=== PATIENT | male | born 1990 | race African-American/Black ===

== ENCOUNTER 2025-01-26 00:25 | Inpatient (IN) | payer MEDICAID ==
[~2025-01-26] VITALS: Ht 177.8 cm; Wt 92.0 kg
[~2025-01-26 00:25] MED LIST: GABA-1250 PO; METH-1181 PO; PERCOT PO
--- NOTE | 2025-01-26 01:48 | ED.PDOC ---
Back pain HPI HPI Comments 34-year-old male presents to the ED via ambulance chief complaint lower extremity weakness and numbness. States several days ago he lost his footing slipped and landed on his back. Patient states since then he has been having increasing pain weakness and numbness which has increased more over the past 6 hours. Pain 10/10 on pain scale sharp shooting pain down bilateral buttocks and legs. 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 He denies saddle anesthesia, chest pain, shortness of breath, loss of bowel or bladder control. Chief Complaint: Back Pain Time Seen by MD: 00:32 Reviewed Notes: Nurses Notes, Distribution District Supervisor Notes, Medications, Allergies Allergies: Coded Allergies: Penicillins (Verified Allergy, Unknown, 12/24/24) Home Meds Active Scripts Methocarbamol (Methocarbamol) 500 Mg Tab, 1000 MG PO TID for 30 Days, #120 TAB Prov:CHINO DASH MD 12/26/24 Reported Medications Oxycodone HCl (Oxycodone Hydrochloride) 10 Mg Tab, 10 MG PO TIDP PRN, TAB 01/26/25 Duloxetine HCl (Duloxetine HCl) 60 Mg Cap, 1 CAP PO DAILY 01/26/25 Gabapentin (Gabapentin) 300 Mg Cap, 600 MG PO TID for 30 Days, MG 12/24/24 Discontinued Scripts Oxycodone W/ Acetaminophen (Percocet 5/325MG) 1 Tab Tb, 1 TAB PO TID PRN, #30 TAB Prov:CHINO DASH MD 12/26/24 Mode of Arrival: EMS Past Medical History Surgical History: Denies all surgeries Family History Family History: Reviewed,noncontributory to illness, Unknown Social History Smoker: Non-Smoker Alcohol: Denies ETOH Use Drugs: Denies Drug Use Constitutional: denies: chills, diaphoresis, fatigue, fever, malaise, sweats, weakness, others EENTM: denies: blurred vision, double vision, ear bleeding, ear discharge, ear drainage, ear pain, ear ringing, eye pain, eye redness, hearing loss, mouth pain, mouth swelling, nasal discharge, nose bleeding, nose congestion, nose pain, photophobia, tearing, throat pain, throat swelling, voice changes, others Respiratory: denies: cough, hemoptysis, orthopnea, SOB at rest, shortness of breath, SOB with excertion, stridor, wheezing, others Cardiovascular: denies: chest pain, dizzy spells, diaphoresis, Dyspnea on exertion, edema, irregular heart beat, left arm pain, lightheadedness, palpitations, PND, syncope, others Gastrointestinal: denies: abdomen distended, abdominal pain, blood streaked bowels, constipated, diarrhea, dysphagia, difficulty swallowing, hematemesis, melena, nausea, poor appetite, poor fluid intake, rectal bleeding, rectal pain, vomiting, others Genitourinary: denies: burning, dysuria, flank pain, frequency, hematuria, incontinence, penile discharge, penile sore, pain, testicle pain, testicle swelling, urgency, others Neurological: reports: left sided numbness, left sided weakness, right sided numbness, right sided weakness; denies: dizziness, fainting, headache, numbness, paresthesia, pre-existing deficit, seizure, speech problems, tingling, tremors, weakness, others Musculoskeletal: reports: back pain; denies: gout, joint pain, joint swelling, muscle pain, muscle stiffness, neck pain, others Integumetry: denies: bruises, change in color, change in hair/nails, dryness, laceration, lesions, lumps, rash, wounds, others Allergic/Immunocompromised: denies: Difficulty Healing, Frequent Infections, Hives, Itching, others Hematologic/Lymphatic: denies: anemia, blood clots, easy bleeding, easy bruising, swollen glands, others Endocrine: denies: excessive hunger, excessive sweating, excessive thirst, excessive urination, flushing, intolerance to cold, intolerance to heat, unexplained weight gain, unexplained weight loss, others Psychiatric: denies: anxiety, bipolar disorder, depression, hopeless, panic disorder, schizophrenia, sleepless, suicidal, others Physical Exam General Appearance: No Apparent Distress, Normal HEENT: Pharynx Normal Neck: Full Range of Motion, Non-Tender, Normal, Normal Inspection Respiratory: Lungs Clear, No Respiratory Distress, Normal Breath Sounds Cardiovascular: No Edema, No JVD, No Murmur, No Gallop, Normal Peripheral Pulses, Regular Rate/Rhythm Breast Exam: Deferred Gastrointestinal: No Organomegaly, Non Tender, No Pulsatile Mass, Normal Bowel Sounds, Soft Genitalia: Deferred Pelvic: Deferred Rectal: Deferred Extremities: No calf tenderness, Normal capillary refill, Normal inspection, Normal range of motion, Non-tender, No pedal edema Musculoskeletal : Location: Bilateral Extremity Location: Back (Tenderness on palpation L1 through L4 spine without crepitus or step-offs. Bilateral paraspinal muscle spasms. Decreased strength lower extremities 3/5. Positive pedal pulses. ) Apperance: Normal Neurologic: Alert, Normal Affect, Normal Mood, Other (decrease sensory level on pin prick at L2-L3) Cerebellar Function: Normal Reflexes: Normal Skin: Dry, Normal Color, Warm Lymphatic: No Adenopathy Was a procedure done? Was a procedure done?: No Back Pain Differential Dx Differential Diagnosis: Fracture, Musculoskeletal Pain X-Ray, Labs, Meds, VS Vital Signs Date Time Temp Pulse Resp B/P (MAP) Pulse Ox O2 Delivery O2 Flow Rate FiO2 01/26/25 00:25 97.8 80 16 124/82 (96) 99 97.8 Lab Test 01/26/25 02:03 Range/Units White Blood Count 6.1 4.4-10.8 10^3/uL Red Blood Count 4.95 4.5-5.90 10^6/uL Hemoglobin 13.3 L 13.5-17.5 g/dL Hematocrit 40.7 L 41.0-53.0 % Mean Corpuscular Volume 82.3 80.0-100.0 fL Mean Corpuscular Hemoglobin 26.8 L 28.0-32.0 pg Mean Corpuscular Hemoglobin Concent 32.6 32.0-36.0 g/dL Red Cell Distribution Width 14.8 H 11.8-14.3 % Platelet Count 310 140-450 10^3/uL Mean Platelet Volume 7.5 6.9-10.8 fL Neutrophils (%) (Auto) 58.5 37.0-80.0 % Lymphocytes (%) (Auto) 35.0 10.0-50.0 % Monocytes (%) (Auto) 5.5 0.0-12.0 % Eosinophils (%) (Auto) 0.7 0.0-7.0 % Basophils (%) (Auto) 0.3 0.0-2.0 % Neutrophils # (Auto) 3.6 1.6-8.6 10 ^3/uL Lymphocytes # (Auto) 2.1 0.4-5.4 10 ^3/uL Monocytes # (Auto) 0.3 0-1.3 10 ^3/uL Eosinophils # (Auto) 0 0-0.8 10 ^3/uL Basophils # (Auto) 0 0-0.2 10 ^3/uL Nucleated Red Blood Cells 0.1 % Sodium Level 140 136-145 mmol/L Potassium Level 3.4 L 3.5-5.1 mmol/L Chloride Level 105 98-107 mmol/L Carbon Dioxide Level 24 20-31 mmol/L Anion Gap 11 5-15 Blood Urea Nitrogen 7 L 9-23 mg/dL Creatinine 0.87 0.700-1.30 mg/dL Glomerular Filtration Rate Calc 117 >90 mL/min BUN/Creatinine Ratio 8.0 L 10.0-20.0 Serum Glucose 84 74-106 mg/dL Calcium Level 9.8 8.7-10.4 mg/dL Total Bilirubin 0.5 0.2-1.0 mg/dL Aspartate Amino Transferase (AST) 17 13-40 U/L Alanine Aminotransferase (ALT) 13 7-40 U/L Alkaline Phosphatase 46 46-116 U/L Total Protein 7.8 5.7-8.2 g/dL Albumin 5.1 H 3.2-4.8 g/dL X-Ray, Labs, Meds, VS Comment CT of lumbar spine shows no acute fractures subluxations or osseous lesions. 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, without bowel bladder control problem Chronic low back pain Reported Guillain-Meraux syndrome Time of 1ST Reevaluation: 03:00 Reevaluation 1ST: Unchanged Time of 2ND Reevaluation: 05:12 Reevaluation 2ND: Unchanged Patient Education/Counseling: Diagnosis, Treatment, Prognosis, Need For Follow Up Family Education/Counseling: No Family Present Departure 1 Departure Time of Disposition: 04:33 Impression: Primary Impression: Ascending paralysis Additional Impressions: Leg weakness, bilateral Lumbar radiculopathy Disposition: ADMITTED INPATIENT Condition: Stable Discharged With: Self Critical Care Note Critical Care Time?: No Stability Stability form required: DIANA Dumont Jan 26, 2025 01:48
--- NOTE | 2025-01-26 02:46 | DVH ---
EXAM: CT LS SPINE WO CONTRAST HISTORY: S/P FALL WEAKNESS AND NUMBNESS COMPARISON: CT LS SPINE WO CONTRAST on DOS: 12/24/24 CTDIvol 29.27 mGy, DLP 1099.79 mGy*cm. TECHNIQUE: Multiple axial CT images of the spine were obtained using bone algorithm. Axial and coron al reformatting was done. Bone and soft tissue windows were reviewed. FINDINGS: No CT evidence of definite acute fracture, spinal dislocation, or significant appearing acute subluxa tion is seen. The visualized paraspinal soft tissues are grossly unremarkable. IMPRESSION: 1. No definite CT evidence of acute fracture or dislocation of the bony lumbar spine.
[2025-01-26 03:09] LABS: Basophils # (auto) 0 10 ^3/uL (0-0.2); Eosinophils # (auto) 0 10 ^3/uL (0-0.8); Eosinophils % (auto) 0.7 % (0.0-7.0); Hematocrit 40.7 % (41.0-53.0); Hemoglobin 13.3 g/dL (13.5-17.5); Lymphocytes # (auto) 2.1 10 ^3/uL (0.4-5.4); Mean Corpuscular Hgb Conc. 32.6 g/dL (32.0-36.0); Monocytes # (auto) 0.3 10 ^3/uL (0-1.3)
[2025-01-26 03:11] LABS: Basophils % (auto) 0.3 % (0.0-2.0); Mean Corpuscular Hemoglobin 26.8 pg (28.0-32.0); Mean Corpuscular Volume 82.3 fL (80.0-100.0); Monocytes % (auto) 5.5 % (0.0-12.0); Neutrophils # (auto) 3.6 10 ^3/uL (1.6-8.6); Neutrophils % (auto) 58.5 % (37.0-80.0); Nucleated Red Blood Cells % 0.1 %; Platelet Count (auto) 310 10^3/uL (140-450); Red Blood Cells 4.95 10^6/uL (4.5-5.90); Red Cell Distribution Width 14.8 % (11.8-14.3); White Blood Cell 6.1 10^3/uL (4.4-10.8)
[2025-01-26 03:19] LABS: Alanine Aminotransferase 13 U/L (7-40); Alkaline Phosphatase 46 U/L (46-116); Anion Gap 11 (5-15); Aspartate Aminotransferase 17 U/L (13-40); Bilirubin, Total 0.5 mg/dL (0.2-1.0); Calcium 9.8 mg/dL (8.7-10.4); Carbon Dioxide 24 mmol/L (20-31); Chloride 105 mmol/L (98-107); Glucose 84 mg/dL (74-106); Sodium 140 mmol/L (136-145); Total Protein 7.8 g/dL (5.7-8.2)
[2025-01-26 03:20] LABS: Albumin 5.1 g/dL (3.2-4.8); Blood Urea Nitrogen 7 mg/dL (9-23); Potassium 3.4 mmol/L (3.5-5.1)
[2025-01-26] MEDS: MORPHINE SULFATE 4 MG/ML SYR/VIAL ONE (06:45)
[2025-01-26] MEDS: SODIUM CHLORIDE 0.9% 1,000 ML IV ONE (06:46)
[2025-01-26] MEDS: MORPHINE SULFATE INJ 2 MG/ml SYRG IV ONE (06:46)
[2025-01-26 07:58] LABS: Urine Bacteria None Seen /hpf (None Seen)
[2025-01-26 08:17] LABS: Urine Blood Negative /uL (Negative); Urine Clarity Clear (Clear); Urine Color Yellow (Yellow); Urine Mucus MODERATE (None Seen); Urine Protein, UAD 1+ (Negative); Urine Specific Gravity 1.035 (1.001-1.035); Urine Squamous Epithelial Cell None Seen /hpf (<5); Urine Urobilinogen 2 mg/dL (Negative); Urine WBC 4 /HPF (0-3)
[2025-01-26 08:26] LABS: Cannabinoid Screen, Urine Pos (NEGATIVE)
[2025-01-26 08:28] LABS: Amphetamine Screen, Urine Neg (NEGATIVE); Barbiturate Scree,Urine Neg (NEGATIVE); Benzodiazephine Screen, Urine Pos (NEGATIVE); Cocaine Screen, Urine Neg (NEGATIVE); Opiate Scree,Urine Pos (NEGATIVE); Phencyclidine Screen, Urine Neg (NEGATIVE)
[2025-01-26] MEDS ORDERED: OXYC-998 PO (08:57)
[2025-01-26] MEDS ORDERED: DULO1CAP6 PO (08:57)
[2025-01-26] MEDS ORDERED: ONDANSETRON HCL 4 MG/2 ML VIAL IV PRN (09:00)
[2025-01-26] MEDS ORDERED: OXYCODONE HCL 10 MG PO PRN (09:00)
[2025-01-26] MEDS ORDERED: DOCUSATE SOD 100 MG CAP PO PRN (09:00)
[2025-01-26] MEDS ORDERED: PERCOCET PO PRN (09:45)
--- NOTE | 2025-01-26 11:22 | DVHHP2 ---
History of Present Illness Reason for Visit: Back pain History of Present Illness Ibis Bangura is a 34-year-old male with past medical history of chronic pain due to a sports injury in his teens, and Guillain-Patricksburg syndrome in August 2024. He states he did receive IVIG treatment in August when he was initially diagnosed. Patient came to the hospital today due to increased back pain after a mechanical fall a couple days ago. He states he began experiencing increased pain, numbness, tingling, and weakness in both legs prompting him to come to the hospital. 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 syndrome) Musculoskeletal: Chronic low back pain Past Surgical History: Hernia Repair Smoke: No ALCOHOL: none Drugs: None Lives: with Family Domestic Violence: Neg Review of Systems Constitutional: No: Fever, Chills, Sweats, Weakness, Malaise, Other Eyes: No: Pain, Vision change, Conjunctivae inflammation, Eyelid inflammation, Other, Redness ENT: No: Ear pain, Ear discharge, Nose pain, Nose discharge, Nose congestion, Mouth pain, Mouth swelling, Throat pain, Throat swelling, Other Respiratory: No: Cough, Dry, Shortness of breath, SOB with excertion, Wheezing, Hemoptysis, Pleuritic Pain, Sputum, Wheezing, Other Cardiovascular: No: Chest Pain, Palpitations, Orthopnea, Paroxysmal Noc. Dyspnea, Edema, Lt Headedness, Other Gastrointestinal: No: Nausea, Vomiting, Abdominal Pain, Diarrhea, Constipation, Melena, Hematochezia, Other Genitourinary: No Dysuria, No Frequency, No Incontinence, No Hematuria, No Retention, No Other Musculoskeletal: back pain; No: other, neck pain, shoulder pain, arm pain, hand pain, leg pain, foot pain Skin: No: Rash, Lesions, Jaundice, Bruising, Other Neurological: Weakness (bilateral lower extremities), Numbness (and tingling to bilateral lower extremities); No: Incoordination, Change in speech, Confusion, Seizures, Other Allergies: Coded Allergies: Penicillins (Verified Allergy, Unknown, 12/24/24) Medications Current Medications Medications Dose Ordered Sig/Roly Route Start Time Stop Time Status Last Admin Dose Admin Sodium Chloride 10 ml Q8HR IV 01/26/25 14:00 UNV Ondansetron HCl 4 mg Q4HP PRN IV 01/26/25 09:00 UNV Docusate Sodium 100 mg BIDPRN PRN PO 01/26/25 09:00 UNV Gabapentin 600 mg TID PO 01/26/25 14:00 UNV Methocarbamol 1,000 mg TID PO 01/26/25 14:00 UNV Exam Vital Signs Vital Signs Date Time Temp Pulse Resp B/P (MAP) Pulse Ox O2 Delivery O2 Flow Rate FiO2 01/26/25 07:23 98.0 71 14 122/71 (88) 99 98.0 General Appearance: Alert, Oriented X3, Cooperative, mild distress HEENT: Atraumatic, PERRLA Respiratory: Clear to auscultation, Normal air movement Cardiovascular: Regular rate, Normal S1, Normal S2, No murmurs Abdominal: Normal bowel sounds, Soft, No tenderness, No hepatospenomegaly Extremities: No clubbing, No cyanosis, No edema, Normal pulses, No tenderness/swelling Skin: No rashes, No breakdown Neuro: Normal speech, Other (states he is having difficulty ambulating due to pain, numbness, and tingling) Psych/Mental Status: Mental status NL, Mood NL Labs/Xrays Labs Test 01/26/25 07:18 01/26/25 02:03 Range/Units Urine Color Yellow Yellow Urine Clarity Clear Clear Urine pH 6.0 5.0-9.0 Urine Specific [place] 1.035 1.001-1.035 Urine Protein 1+ H Negative Urine Ketones 3+ H Negative Urine Blood Negative Negative /uL Urine Nitrite Negative Negative Urine Bilirubin Negative Negative Urine Urobilinogen 2 H Negative mg/dL Urine Leukocyte Esterase Negative Negative /uL Urine RBC 1 0 - 3 /hpf Urine Microscopic WBC 4 H 0-3 /HPF Urine Squamous Epithelial Cells None seen <5 /hpf Urine Bacteria None seen None Seen /hpf Urine Mucus Moderate None Seen Urine Glucose Normal Normal mg/dL Urine Opiates Screen Pos NEGATIVE Urine Fentanyl Screen Neg NEGATIVE Urine Barbiturates Screen Neg NEGATIVE Urine Phencyclidine Screen Neg NEGATIVE Urine Amphetamines Screen Neg NEGATIVE Urine Benzodiazepines Screen Pos NEGATIVE Urine Cocaine Screen Neg NEGATIVE Urine Cannabinoids Screen Pos NEGATIVE White Blood Count 6.1 4.4-10.8 10^3/uL Red Blood Count 4.95 4.5-5.90 10^6/uL Hemoglobin 13.3 L 13.5-17.5 g/dL Hematocrit 40.7 L 41.0-53.0 % Mean Corpuscular Volume 82.3 80.0-100.0 fL Mean Corpuscular Hemoglobin 26.8 L 28.0-32.0 pg Mean Corpuscular Hemoglobin Concent 32.6 32.0-36.0 g/dL Red Cell Distribution Width 14.8 H 11.8-14.3 % Platelet Count 310 140-450 10^3/uL Mean Platelet Volume 7.5 6.9-10.8 fL Neutrophils (%) (Auto) 58.5 37.0-80.0 % Lymphocytes (%) (Auto) 35.0 10.0-50.0 % Monocytes (%) (Auto) 5.5 0.0-12.0 % Eosinophils (%) (Auto) 0.7 0.0-7.0 % Basophils (%) (Auto) 0.3 0.0-2.0 % Neutrophils # (Auto) 3.6 1.6-8.6 10 ^3/uL Lymphocytes # (Auto) 2.1 0.4-5.4 10 ^3/uL Monocytes # (Auto) 0.3 0-1.3 10 ^3/uL Eosinophils # (Auto) 0 0-0.8 10 ^3/uL Basophils # (Auto) 0 0-0.2 10 ^3/uL Nucleated Red Blood Cells 0.1 % Sodium Level 140 136-145 mmol/L Potassium Level 3.4 L 3.5-5.1 mmol/L Chloride Level 105 98-107 mmol/L Carbon Dioxide Level 24 20-31 mmol/L Anion Gap 11 5-15 Blood Urea Nitrogen 7 L 9-23 mg/dL Creatinine 0.87 0.700-1.30 mg/dL Glomerular Filtration Rate Calc 117 >90 mL/min BUN/Creatinine Ratio 8.0 L 10.0-20.0 Serum Glucose 84 74-106 mg/dL Calcium Level 9.8 8.7-10.4 mg/dL Total Bilirubin 0.5 0.2-1.0 mg/dL Aspartate Amino Transferase (AST) 17 13-40 U/L Alanine Aminotransferase (ALT) 13 7-40 U/L Alkaline Phosphatase 46 46-116 U/L Total Protein 7.8 5.7-8.2 g/dL Albumin 5.1 H 3.2-4.8 g/dL EXAM: CT LS SPINE WO CONTRAST FINDINGS: No CT evidence of definite acute fracture, spinal dislocation, or significant appearing acute subluxation is seen. The visualized paraspinal soft tissues are grossly unremarkable. IMPRESSION: 1. No definite CT evidence of acute fracture or dislocation of the bony lumbar spine. Assessment/Plan Assessment/Plan Assessment: Lumbar radiculopathy, Bilateral leg weakness, Paraesthesia, Guillain-Patricksburg syndrome, Chronic pain, Plan: Admit to Med-Surg, Physical therapy, Pain management, Consider neurology consult if symptoms worsen, Home medications reconciled, Plan discussed with: Patient My Orders Orders - ANITA LYN Procedure Category Date Status Time Admit ADMIT 01/26/25 Transmitted 08:54 Code Status CODE 01/26/25 Transmitted 08:54 Sodium Chloride Lock PHA 01/26/25 Logged (Saline Lock Ns) 14:00 Ondansetron Hcl PHA 01/26/25 Logged (Zofran) 09:00 Docusate Sodium PHA 01/26/25 Logged Capsule (Colace 09:00 Fall Risk Precautions KELLY 01/26/[address] 08:54 Complete Blood Count LAB 01/27/25 Verified 04:00 Comprehensive LAB 01/27/25 Verified Metabolic Panel 04:00 Pt Request For Service PT 01/26/25 Logged 08:54 Condition: Serious KELLY 01/26/25 In Process 08:54 Gabapentin Capsule PHA 01/26/25 Logged (Neurontin Capsule) 14:00 Methocarbamol PHA 01/26/25 Logged (Robaxin) 14:00 (Nf) Oxycodone Hcl PHA 01/26/25 Logged (Oxycodone Hydrochlor 09:00 Date of Service: Jan 26, 2025 Billing Provider: ANITA LYN Common Visit Codes: [id number] INP/OBS CARE (MOD) ANITA LYN Jan 26, 2025 11:22
[2025-01-26] MEDS: KETOROLAC TROMETH 30 MG/ML 1ML VIAL IV PRN (11:23)
[2025-01-26 12:58] VITALS: BP 114/75; PULSE 77; RESP 16; TEMP 98; O2SAT 99
[2025-01-26] MEDS ORDERED: SODIUM CHLOR 0.9% PF (SALINE LOCK) 10ML VIAL/SYR IV SCH (14:00)
[2025-01-26] MEDS ORDERED: METHOCARBAMOL 500 MG TAB PO SCH (14:00)
[2025-01-26] MEDS ORDERED: GABAPENTIN 300 MG CAP PO SCH (14:00)
== END 2025-01-26 15:53 | disposition left against medical advice (07) | DRG 347 ==
LOC: EDBD 00:25 → EDUNIT# 00:25 → ER 00:25 → OVERFLOW 08:54 → ER 08:57
PROVIDERS: ADMIT Nurse Practitioner Family; ATTEND Nurse Practitioner Family
DX: M54.16 Radiculopathy, lumbar region (principal); G61.0 Guillain-Barre syndrome; Z53.29 Procedure and treatment not carried out because of patient's decision for other reasons; G89.29 Other chronic pain; Z88.0 Allergy status to penicillin; Z79.899 Other long term (current) drug therapy
CPT/HCPCS: 36415; 72131; 80053; 80307; 81001; 85025; 96374; 96375; G0378; J1885